=== PATIENT | male | born 1940 | race Caucasian/White ===

== ENCOUNTER → 2020-02-29 09:05 | Outpatient (REF) | payer MEDICARE, SELFPAY | LOC: LABSPEC 09:05 | PROVIDERS: Referring Provider Family Medicine; Visit Provider Family Medicine | DX: Z11.59 Encounter for screening for other viral diseases (principal) | CPT/HCPCS: 87635; U0003 ==

== ENCOUNTER → 2020-03-19 07:25 | Outpatient (REF) | payer MEDICARE, SELFPAY | LOC: OLS.ACW200 07:25 | PROVIDERS: Referring Provider Family Medicine; Visit Provider Family Medicine | DX: Z11.59 Encounter for screening for other viral diseases (principal); C25.3 Malignant neoplasm of pancreatic duct; K83.1 Obstruction of bile duct; R53.1 Weakness; R26.81 Unsteadiness on feet; E11.42 Type 2 diabetes mellitus with diabetic polyneuropathy; I50.22 Chronic systolic (congestive) heart failure | CPT/HCPCS: 87635; U0003 ==

== ENCOUNTER → 2020-06-01 10:39 | Outpatient (REF) | payer MEDICARE, SELFPAY | LOC: OLS.ACW200 10:39 | PROVIDERS: Visit Provider Family Medicine | DX: Z03.818 Encounter for observation for suspected exposure to other biological agents ruled out (principal) | CPT/HCPCS: 87635; U0003 ==

== ENCOUNTER → 2020-06-07 12:35 | Outpatient (REF) | payer MEDICARE, MEDICAID, SELFPAY | LOC: OLS.ACW300 12:35 | PROVIDERS: Referring Provider Family Medicine; Visit Provider Family Medicine | DX: Z03.818 Encounter for observation for suspected exposure to other biological agents ruled out (principal) | CPT/HCPCS: 87635; U0003 ==

== ENCOUNTER → 2020-07-25 14:30 | Outpatient (REF) | payer MEDICARE, SELFPAY | LOC: OLS.ACW300 14:30 | PROVIDERS: Referring Provider Family Medicine; Visit Provider Family Medicine | DX: Z03.818 Encounter for observation for suspected exposure to other biological agents ruled out (principal) | CPT/HCPCS: 87635; U0003 ==